=== PATIENT | female | born 1990 | race African-American/Black ===

== ENCOUNTER 2017-05-08 03:29 | Emergency (ER) | payer MEDICAID ==
[~2017-05-08] VITALS: Ht 162.6 cm; Wt 79.5 kg
[~2017-05-08 03:29] MED LIST: INSLAN SQ; INSU100I3 SQ; INSU1INS
[2017-05-08] MEDS ORDERED: SODIUM CHLORIDE 0.9% 1,000 ML IV ONE (06:23)
[2017-05-08 06:38] LABS: CLARITY URINE CLEAR (CLEAR); COLOR URINE YELLOW (YELLOW); KETONES URINE NEGATIVE (NEGATIVE); LEUKOCYTE ESTERASE URINE NEGATIVE (NEGATIVE); NITRITE URINE NEGATIVE (NEGATIVE); OCCULT BLOOD URINE TRACE (NEGATIVE); PH URINE 6.5 (4.5-8.0); PROTEIN URINE NEGATIVE (NEGATIVE); SPECIFIC GRAVITY URINE 1.006 (1.005-1.030); UROBILINOGEN URINE 0.2 E.U./dL (0.2-1.0)
[2017-05-08 06:51] LABS: BASOPHILS % 0.7 % (0.0-2.0); EOSINOPHILS % 0.5 % (0.0-5.0); HEMATOCRIT. 39.3 % (36.0-48.0); HEMOGLOBIN. 12.9 g/dL (12.0-16.0); LYMPHOCYTES % 34.5 % (20.0-50.0); MEAN CORPUSCULAR VOLUME 82.4 fL (81.0-99.0); MEAN PLATELET VOLUME 8.3 fl (7.4-10.4); MONOCYTES % 7.2 % (2.0-8.0); NEUTROPHILS % 57.1 % (40.0-76.0); PLATELET 297 x1000/uL (130-400); RED BLOOD CELL COUNT 4.76 mill/uL (4.2-5.4); RED CELL DISTRIBUTION WIDTH 13.8 % (11.6-14.6)
[2017-05-08 06:58] LABS: PROTHROMBIN TIME 10.7 sec (9.4-11.6)
[2017-05-08 07:06] LABS: CHLORIDE 111 mEq/L (98-107); ETHANOL BLOOD 210 mg/dL
[2017-05-08 07:18] LABS: HCG SCREEN NEGATIVE
[2017-05-08 07:26] LABS: *BARBITURATES SCREEN URINE NEGATIVE (NEGATIVE); *BENZODIAZEPINES SCREEN URINE NEGATIVE (NEGATIVE); *COCAINE SCREEN URINE NEGATIVE (NEGATIVE); METHADONE URINE SCREEN NEGATIVE (NEGATIVE); OPIATES URINE SCREEN NEGATIVE (NEGATIVE); PHENCYCLIDINE URINE SCREEN NEGATIVE (NEGATIVE)
[2017-05-08 07:27] LABS: *AMPHETAMINES SCREEN URINE NEGATIVE (NEGATIVE); CANNABINOID URINE SCREEN NEGATIVE (NEGATIVE)
[2017-05-08 07:42] VITALS: BP 120/90
== END 2017-05-08 07:44 | disposition left against medical advice (07) ==
LOC: ER 03:29
DX: E11.649 Type 2 diabetes mellitus with hypoglycemia without coma (principal); F10.129 Alcohol abuse with intoxication, unspecified; Z87.891 Personal history of nicotine dependence; Z88.5 Allergy status to narcotic agent; Z88.6 Allergy status to analgesic agent; Z79.4 Long term (current) use of insulin
CPT/HCPCS: 36415; 80053; 80305; 81003; 82962; 84703; 85025; 85610; 96360; 99284; G0482; J7030; Z7610

== ENCOUNTER 2018-07-25 08:09 | Emergency (ER) | payer MEDICAID ==
[~2018-07-25] VITALS: Ht 162.6 cm; Wt 65.0 kg
[2018-07-25] MEDS ORDERED: SODIUM CHLORIDE 0.9% 1,000 ML IV ONE (08:46)
[2018-07-25 09:00] LABS: BASOPHILS % 0.7 % (0.0-2.0); EOSINOPHILS % 0.1 % (0.0-5.0); HEMOGLOBIN. 12.7 g/dL (12.0-16.0); MEAN CORPUSCULAR HEMOGLOBIN 27.9 pg (28.0-32.0); MEAN CORPUSCULAR VOLUME 85.5 fL (81.0-99.0); MEAN PLATELET VOLUME 8.4 fl (7.4-10.4); MONOCYTES % 6.5 % (2.0-8.0); NEUTROPHILS % 73.7 % (40.0-76.0); PLATELET 227 x1000/uL (130-400); RED BLOOD CELL COUNT 4.56 mill/uL (4.2-5.4); RED CELL DISTRIBUTION WIDTH 14.2 % (11.6-14.6)
[2018-07-25 09:05] LABS: CHLORIDE 107 mEq/L (98-107)
[2018-07-25 11:18] LABS: CLARITY URINE CLOUDY (CLEAR); COLOR URINE YELLOW (YELLOW); KETONES URINE NEGATIVE (NEGATIVE); LEUKOCYTE ESTERASE URINE TRACE (NEGATIVE); NITRITE URINE NEGATIVE (NEGATIVE); OCCULT BLOOD URINE NEGATIVE (NEGATIVE); PH URINE 5.5 (4.5-8.0); PROTEIN URINE NEGATIVE (NEGATIVE); SPECIFIC GRAVITY URINE 1.014 (1.005-1.030); UROBILINOGEN URINE 0.2 E.U./dL (0.2-1.0)
[2018-07-25 12:10] VITALS: BP 108/62
== END 2018-07-25 12:20 | disposition home or self-care (01) ==
LOC: ER 08:09
DX: E10.649 Type 1 diabetes mellitus with hypoglycemia without coma (principal); N39.0 Urinary tract infection, site not specified; Z79.4 Long term (current) use of insulin; Z88.6 Allergy status to analgesic agent; Z88.5 Allergy status to narcotic agent
CPT/HCPCS: 36415; 80053; 81003; 85025; 96360; 99283; J7030; Z7610

== ENCOUNTER 2019-05-07 15:54 | Emergency (ER) | payer MEDICAID ==
[~2019-05-07] VITALS: Ht 165.1 cm; Wt 70.5 kg
[2019-05-07 16:17] VITALS: BP 154/85
[2019-05-07] MEDS ORDERED: PENICILLIN G BENZATHINE 1,200,000 UNITS/2ML SYR IM ONE (19:30)
== END 2019-05-07 19:55 | disposition home or self-care (01) ==
LOC: ER 15:54
DX: J02.0 Streptococcal pharyngitis (principal); E11.9 Type 2 diabetes mellitus without complications; Z88.6 Allergy status to analgesic agent; Z79.4 Long term (current) use of insulin
CPT/HCPCS: 87430; 96372; 99283; J0561